=== PATIENT | male | born 1980 | race African-American/Black ===

== ENCOUNTER 2021-10-28 19:53 | Emergency (ER) | payer OTHER ==
[~2021-10-28] VITALS: Ht 175.3 cm; Wt 71.4 kg
[2021-10-28 21:38] VITALS: BP 129/72
== END 2021-10-28 21:41 | disposition home or self-care (01) ==
LOC: EMS 19:58
DX: F15.10 Other stimulant abuse, uncomplicated (principal); F20.9 Schizophrenia, unspecified; F41.9 Anxiety disorder, unspecified; F17.210 Nicotine dependence, cigarettes, uncomplicated; Z87.19 Personal history of other diseases of the digestive system; Z86.59 Personal history of other mental and behavioral disorders
CPT/HCPCS: 99281; Z7502

== ENCOUNTER 2022-02-02 03:29 | Inpatient (IN) | payer MEDICAID ==
[~2022-02-02] VITALS: Ht 175.3 cm; Wt 71.0 kg
[2022-02-02] MEDS ORDERED: ZOLPIDEM TARTRATE 10 MG TABLET PO PRN (04:15)
[2022-02-02] MEDS ORDERED: PNEUMOCOCCAL VACCINE POLYVALENT 0.5 ML VIAL [PPSV23] IM. ONE (05:15)
[2022-02-02 05:51] VITALS: BP 138/85
[2022-02-02] MEDS: LORazepam 2 MG TABLET PO PRN (15:51)
[2022-02-02] MEDS: HALOPERIDOL 5 MG TABLET PO PRN (15:51)
[2022-02-02 20:03] VITALS: BP 126/82
[2022-02-02] MEDS ORDERED: MAGNESIUM HYDROXIDE SUSPENSION 30 ML UDCUP PO PRN (22:30)
[2022-02-02] MEDS ORDERED: BENZOCAINE/MENTHOL LOZENGE PO PRN (22:30)
[2022-02-02] MEDS ORDERED: LOPERAMIDE HCL 2 MG CAPSULE PO PRN (22:30)
[2022-02-02] MEDS ORDERED: OMEPRAZOLE 20 MG CAPSULE PO PRN (22:30)
[2022-02-02] MEDS ORDERED: PETROLATUM,WHITE 28 GM JELLY TP PRN (22:30)
[2022-02-02] MEDS ORDERED: ALBUTEROL SULFATE HFA 90 MCG/PUFF 8 GM INHALER IH PRN (22:30)
[2022-02-02] MEDS ORDERED: IBUPROFEN 600 MG TABLET PO PRN (22:30)
[2022-02-02] MEDS ORDERED: ACETAMINOPHEN 325 MG TABLET PO PRN (22:30)
[2022-02-02] MEDS ORDERED: BACITRACIN 28 GM OINTMENT TP PRN (22:30)
[2022-02-02] MEDS ORDERED: CloNIDine HCL 0.1 MG TABLET PO PRN (22:30)
[2022-02-02] MEDS ORDERED: ONDANSETRON HCL 4 MG TABLET PO PRN (22:30)
[2022-02-02] MEDS ORDERED: DOCUSATE SODIUM 100 MG CAPSULE PO PRN (22:30)
[2022-02-02] MEDS ORDERED: MAG HYDROX/AL HYDROX/SIMETH ES 30 ML SUSPENSION UDCUP PO PRN (22:30)
[2022-02-02 23:15] VITALS: BP 113/66
[2022-02-03 06:31] LABS: BASOPHILS % (AUTO) 1.1 % (0.0-2.0); EOSINOPHILS % (AUTO) 5.7 % (1.0-6.0); HEMATOCRIT 29.7 % (41-53); HEMOGLOBIN 9.4 g/dL (13.5-17.5); LYMPHOCYTES # (AUTO) 1.3 K/uL (1.0-4.8); LYMPHOCYTES % (AUTO) 19.9 % (22.0-44.0); MEAN CORPUSCULAR HEMOGLOBIN 27.8 pg (26.0-34.0); MEAN CORPUSCULAR HGB CONC 31.7 G/dL (31.0-37.0); MEAN CORPUSCULAR VOLUME 88 fL (80-100); MONOCYTES # (AUTO) 0.8 K/uL (0.1-1.0); MONOCYTES % (AUTO) 12.3 % (2.0-9.0); NEUTROPHILS # (AUTO) 3.9 K/uL (1.8-7.7); PLATELET COUNT (AUTO) 738 K/uL (150-450); RED BLOOD CELL COUNT(AUTO) 3.39 MIL/uL (4.50-5.90); RED CELL DISTRIBUTION WIDTH 15.4 % (11.5-14.5)
[2022-02-03 06:59] LABS: ALANINE AMINOTRANSFERASE 32 U/L (12-78); ALBUMIN 2.6 g/dL (3.4-5.0); ALKALINE PHOSPHATASE 150 U/L (46-116); ANION GAP 5 mmol/L (8-16); ASPARTATE AMINOTRANSFERASE 44 U/L (15-37); CALCIUM, TOTAL 8.8 mg/dL (8.8-10.5); CARBON DIOXIDE 28 mmol/L (22-29); CHLORIDE 102 mmol/L (98-107); CHOL/HDL RATIO 3.5 (4.2-7.3); CHOLESTEROL 120 mg/dL (131-200); CREATININE 0.92 mg/dL (0.60-1.30); GLOMERULAR FILTR. RATE CALC > 60 mL/min (>60); GLUCOSE,RANDOM 110 mg/dL (70-110); HDL CHOLESTEROL 34 mg/dL (40-60); LDL CHOL (CALC.) 75 mg/dL (0-130); POTASSIUM 4.7 mmol/L (3.5-5.1); SODIUM SERUM 135 mmol/L (136-145); THYROID STIMULATING HORMONE 1.45 uIU/mL (0.36-3.74); TOTAL PROTEIN, SERUM 8.3 g/dL (6.4-8.2); TRIGLYCERIDES 56 mg/dL (15-150); UREA NITROGEN, BLOOD 16 mg/dL (7-18)
[2022-02-03 07:10] LABS: BILIRUBIN,TOTAL 0.1 mg/dL (0.1-1.0)
[2022-02-03 08:41] VITALS: BP 125/77
[2022-02-03] MEDS: TraMADol HCL 50 MG TABLET PO PRN (11:04)
[2022-02-03 11:05] VITALS: BP 129/82
[2022-02-03 11:45] LABS: APPEARANCE,URINE CLEAR (CLEAR); BILIRUBIN,URINE NEGATIVE (NEGATIVE); GLUCOSE, URINE (UA) NEGATIVE (NEGATIVE); KETONES,URINE NEGATIVE (NEGATIVE); LEUKOCYTE ESTERASE ,URINE NEGATIVE (NEGATIVE); NITRATE,URINE NEGATIVE (NEGATIVE); OCCULT BLOOD,URINE NEGATIVE (NEGATIVE); PH,URINE 7.5 (5.0-8.0); PROTEIN,URINE NEGATIVE (NEGATIVE); SPECIFIC GRAVITIY, URINE 1.022 (1.003-1.030); UROBILINOGEN,URINE <=1.0 mg/dL (<=1.0)
[2022-02-03 11:57] LABS: AMPHET/METH SCREEN,URINE NEGATIVE (NEGATIVE); BARBITURATE SCREEN, URINE NEGATIVE (NEGATIVE); BENZODIAZEPINES SCREEN,URINE NEGATIVE (NEGATIVE); CANNABINOID SCREEN,URINE POSITIVE (NEGATIVE); COCAINE SCREEN,URINE NEGATIVE (NEGATIVE); METHADONE SCREEN, URINE NEGATIVE (NEGATIVE); OPIATE SCREEN,URINE NEGATIVE (NEGATIVE); PHENCYCLIDINE SCREEN,URINE NEGATIVE (NEGATIVE)
[2022-02-03] MEDS: LORazepam 2 MG TABLET PO PRN (14:47)
[2022-02-03] MEDS: HALOPERIDOL 5 MG TABLET PO PRN (14:47)
[2022-02-03 16:03] VITALS: BP 103/75
[2022-02-03] MEDS ORDERED: MINERAL OIL/PETROLATUM 120 GM CREAM TP PRN (16:30)
[2022-02-03] MEDS: MAGNESIUM SULFATE 454 GM BAG TP SCH (17:46)
[2022-02-03 21:00] VITALS: BP 109/70
[2022-02-04 08:08] VITALS: BP 114/66
[2022-02-04] MEDS: ARIPiprazole 10 MG TABLET PO SCH (08:08)
[2022-02-04] MEDS: TraMADol HCL 50 MG TABLET PO PRN (08:08)
[2022-02-04] MEDS: MAGNESIUM SULFATE 454 GM BAG TP SCH ×3 (08:09→16:55)
[2022-02-04 08:33] VITALS: BP 114/66
[2022-02-04] MEDS: NICOTINE 21 MG/24 HOUR PATCH TD SCH (10:55)
[2022-02-04] MEDS: MUPIROCIN CALCIUM 2% 22 GM OINTMENT NASAL SCH ×2 (11:29→16:54)
[2022-02-04] MEDS ORDERED: CeFAZolin 2 GM/DEXTROSE 50 ML IV ONE (12:00)
[2022-02-04 16:01] VITALS: BP 106/56
[2022-02-04] MEDS: LORazepam 2 MG TABLET PO PRN (18:54)
[2022-02-05 08:02] VITALS: BP 106/62
[2022-02-05] MEDS: ASPIRIN 81 MG DR TABLET PO SCH (08:12)
[2022-02-05] MEDS: MUPIROCIN CALCIUM 2% 22 GM OINTMENT NASAL SCH ×2 (08:12→16:23)
[2022-02-05] MEDS: ARIPiprazole 10 MG TABLET PO SCH (08:12)
[2022-02-05] MEDS: MAGNESIUM SULFATE 454 GM BAG TP SCH ×2 (08:13→16:23)
[2022-02-05] MEDS: NICOTINE 21 MG/24 HOUR PATCH TD SCH ×2 (08:13→09:00)
[2022-02-05 16:01] VITALS: BP 107/73
[2022-02-06] MEDS: LORazepam 2 MG TABLET PO PRN (04:02)
[2022-02-06 08:17] VITALS: BP 109/60
[2022-02-06] MEDS: NICOTINE 21 MG/24 HOUR PATCH TD SCH (09:00)
[2022-02-06] MEDS: MAGNESIUM SULFATE 454 GM BAG TP SCH (09:00)
[2022-02-06] MEDS: ASPIRIN 81 MG DR TABLET PO SCH (09:07)
[2022-02-06] MEDS: ARIPiprazole 10 MG TABLET PO SCH (09:07)
[2022-02-06] MEDS: MUPIROCIN CALCIUM 2% 22 GM OINTMENT NASAL SCH (09:20)
[2022-02-07] MEDS ORDERED: CeFAZolin 2 GM/DEXTROSE 50 ML IV ONE (12:00)
== END 2022-02-06 13:15 | disposition short-term general hospital (02) | DRG 750 ==
LOC: B3A 04:23 → 3EC 22:41
PROVIDERS: ADMIT Psychiatry & Neurology Psychiatry; ATTEND Psychiatry & Neurology Psychiatry
DX: F25.9 Schizoaffective disorder, unspecified (principal); R45.851 Suicidal ideations; F32.A Depression, unspecified; F41.9 Anxiety disorder, unspecified; G47.00 Insomnia, unspecified; I10 Essential (primary) hypertension; J44.9 Chronic obstructive pulmonary disease, unspecified; K21.9 Gastro-esophageal reflux disease without esophagitis; F15.90 Other stimulant use, unspecified, uncomplicated; K59.00 Constipation, unspecified; Z59.00 Homelessness unspecified; Z72.0 Tobacco use; Z91.81 History of falling
CPT/HCPCS: 80053; 80061; 80307; 81003; 83036; 84439; 84443; 85025; 87081; J0690

== ENCOUNTER 2022-02-06 14:29 | Inpatient (IN) | payer OTHER ==
[~2022-02-06] VITALS: Ht 172.7 cm; Wt 70.4 kg
[2022-02-06 14:00] VITALS: BP 118/75
[2022-02-06 15:51] VITALS: BP 119/69
[2022-02-06] MEDS: HYDROCODONE/ACETAMINOPHEN 5-325 MG TABLET PO PRN (16:23)
[2022-02-06 16:36] LABS: COVID AG,FIA SOURCE NASAL SWAB
[2022-02-06 19:49] VITALS: BP 115/78
[2022-02-07 04:34] VITALS: BP 100/58
[2022-02-07] MEDS ORDERED: ALBUTEROL SULFATE 2.5 MG/0.5 ML NEB SOLUTION NEB PRN (06:15)
[2022-02-07] MEDS ORDERED: IPRATROPIUM BROMIDE 0.5 MG/2.5 ML NEB SOLUTION NEB PRN (06:15)
[2022-02-07] MEDS ORDERED: ACETAMINOPHEN 325 MG TABLET PO PRN (06:15)
[2022-02-07 07:23] VITALS: BP 113/74
[2022-02-07] MEDS ORDERED: RINGERS SOLUTION,LACTATED 0 ML IV ONE (08:03)
[2022-02-07 08:28] LABS: BASOPHILS % (AUTO) 1.1 % (0.0-2.0); HEMATOCRIT 33.1 % (41-53); HEMOGLOBIN 10.5 g/dL (13.5-17.5); LYMPHOCYTES # (AUTO) 1.3 K/uL (1.0-4.8); LYMPHOCYTES % (AUTO) 20.4 % (22.0-44.0); MEAN CORPUSCULAR HEMOGLOBIN 27.7 pg (26.0-34.0); MEAN CORPUSCULAR HGB CONC 31.6 G/dL (31.0-37.0); MEAN CORPUSCULAR VOLUME 88 fL (80-100); MONOCYTES # (AUTO) 0.6 K/uL (0.1-1.0); MONOCYTES % (AUTO) 9.9 % (2.0-9.0); NEUTROPHILS # (AUTO) 3.9 K/uL (1.8-7.7); NEUTROPHILS % (AUTO) 58.6 % (40.0-70.0); PLATELET COUNT (AUTO) 611 K/uL (150-450); RED BLOOD CELL COUNT(AUTO) 3.77 MIL/uL (4.50-5.90); RED CELL DISTRIBUTION WIDTH 15.5 % (11.5-14.5)
[2022-02-07 08:40] LABS: INR 1.1 (0.9-1.1); PROTHROMBIN TIME 11.9 SEC (9.4-11.6)
[2022-02-07 08:41] LABS: HEMOGLOBIN A1C 5.8 % (3.8-5.6)
[2022-02-07 08:43] LABS: ALANINE AMINOTRANSFERASE 31 U/L (12-78); ALBUMIN 3.1 g/dL (3.4-5.0); ALKALINE PHOSPHATASE 185 U/L (46-116); ANION GAP 4 mmol/L (8-16); ASPARTATE AMINOTRANSFERASE 27 U/L (15-37); BILIRUBIN,TOTAL 0.1 mg/dL (0.1-1.0); CALCIUM, TOTAL 9.3 mg/dL (8.8-10.5); CARBON DIOXIDE 30 mmol/L (22-29); CHLORIDE 101 mmol/L (98-107); CREATININE 0.94 mg/dL (0.60-1.30); GLUCOSE,RANDOM 88 mg/dL (70-110); PHOSPHORUS 4.2 mg/dL (2.5-4.9); POTASSIUM 4.5 mmol/L (3.5-5.1); SODIUM SERUM 135 mmol/L (136-145); TOTAL PROTEIN, SERUM 9.1 g/dL (6.4-8.2); UREA NITROGEN, BLOOD 13 mg/dL (7-18)
[2022-02-07 09:00] LABS: GLOMERULAR FILTR. RATE CALC > 60 mL/min (>60)
[2022-02-07] MEDS ORDERED: RINGERS SOLUTION,LACTATED 1,000 ML IV ONE (11:00)
[2022-02-07] MEDS: HYDROCODONE/ACETAMINOPHEN 5-325 MG TABLET PO PRN (11:13)
[2022-02-07 13:00] VITALS: BP 117/76
[2022-02-07] MEDS: MORPHINE SULFATE 2 MG/ML SYRINGE IVP PRN ×3 (13:03→23:26)
[2022-02-07 15:36] VITALS: BP 120/74
[2022-02-07 19:41] VITALS: BP 116/72
[2022-02-08 04:12] VITALS: BP 110/70
[2022-02-08] MEDS ORDERED: RINGERS SOLUTION,LACTATED 1,000 ML IV ONE ×2 (06:19→10:21)
[2022-02-08] MEDS ORDERED: BUPIVACAINE LIPOSOME/PF 1.3%-13.3MG/ML SUSPENSION 20 ML VIAL INJ ONE (06:45)
[2022-02-08] MEDS ORDERED: SODIUM CL IRRIG SOLN BAG 3,000 ML IRRIG ONE (06:47)
[2022-02-08] MEDS ORDERED: BUPIVACAINE HCL/PF 0.25% 30 ML VIAL ONE (06:47)
[2022-02-08] MEDS: RINGERS SOLUTION,LACTATED 1,000 ML IV SCH (06:52)
[2022-02-08] MEDS: VANCOMYCIN HCL 1 GM/VIAL ONE ×2 (08:10→08:11)
[2022-02-08] MEDS ORDERED: VANCOMYCIN HCL 1 GM/VIAL ONE (09:52)
[2022-02-08] MEDS ORDERED: SUGAMMADEX SODIUM 200 MG/2 ML VIAL IVP ONE (11:05)
[2022-02-08] MEDS ORDERED: ROCURONIUM BROMIDE 10 MG/ML 5 ML VIAL ONE (11:06)
[2022-02-08] MEDS ORDERED: HYDROmorphone 2 MG/ML VIAL ONE (11:53)
[2022-02-08] MEDS ORDERED: FentaNYL CITRATE PF 100 MCG/2 ML VIAL ONE (11:53)
[2022-02-08] MEDS ORDERED: ACETAMINOPHEN 1000 MG/ISO-OSM 100 ML IV ONE ×2 (11:53→12:15)
[2022-02-08] MEDS ORDERED: MEPERIDINE-PF 25 MG/ML VIAL IVP PRN (12:15)
[2022-02-08] MEDS: HYDROmorphone 2 MG/ML VIAL IVP PRN ×3 (12:23→12:43)
[2022-02-08] MEDS: FentaNYL CITRATE PF 100 MCG/2 ML VIAL IVP PRN ×2 (12:23→12:24)
[2022-02-08] MEDS: MORPHINE SULFATE 2 MG/ML SYRINGE IVP PRN (13:26)
[2022-02-08] MEDS ORDERED: SODIUM CHLORIDE 0.9% 250 ML IV ONE (16:18)
[2022-02-08] MEDS: CeFAZolin 2 GM/DEXTROSE 50 ML IV SCH (16:35)
[2022-02-08] MEDS: HYDROCODONE/ACETAMINOPHEN 5-325 MG TABLET PO PRN ×2 (16:36→20:45)
[2022-02-08 17:01] VITALS: BP 126/72
[2022-02-08 19:36] VITALS: BP_SYST 102; BP_SYST 131; BP_DIAS 62; BP_DIAS 74
[2022-02-08] MEDS: OXYGEN THERAPY IH SCH (20:45)
[2022-02-08] MEDS: ENOXAPARIN SODIUM 30 MG/0.3 ML PF SYRINGE SQ SCH (20:45)
[2022-02-09] MEDS: CeFAZolin 2 GM/DEXTROSE 50 ML IV SCH
[2022-02-09] MEDS: HYDROCODONE/ACETAMINOPHEN 5-325 MG TABLET PO PRN ×5 (00:58→22:32)
[2022-02-09] MEDS ORDERED: HYDROmorphone 2 MG/ML VIAL IVP ONE (05:28)
[2022-02-09] MEDS ORDERED: PROPOFOL 1% 20 ML VIAL IVP ONE (05:28)
[2022-02-09] MEDS ORDERED: MIDAZOLAM HCL 2 MG/2 ML VIAL IVP ONE (05:28)
[2022-02-09] MEDS ORDERED: ONDANSETRON HCL 4 MG/2 ML VIAL IVP ONE (05:28)
[2022-02-09] MEDS ORDERED: ROCURONIUM BROMIDE 10 MG/ML 5 ML VIAL IVP ONE (05:28)
[2022-02-09] MEDS ORDERED: LIDOCAINE/PF 2% 5 ML VIAL IM ONE (05:28)
[2022-02-09 05:38] VITALS: BP 122/74
[2022-02-09] MEDS: RINGERS SOLUTION,LACTATED 1,000 ML IV SCH (06:39)
[2022-02-09] MEDS: OXYGEN THERAPY IH SCH ×2 (08:00→20:00)
[2022-02-09] MEDS: ENOXAPARIN SODIUM 30 MG/0.3 ML PF SYRINGE SQ SCH ×2 (08:12→20:44)
[2022-02-09 08:58] VITALS: BP 127/69
[2022-02-09 16:33] VITALS: BP 129/70
[2022-02-09 20:07] VITALS: BP 138/68
[2022-02-09] MEDS: MELATONIN 3 MG TABLET PO PRN (23:10)
[2022-02-10 03:12] VITALS: BP 123/83
[2022-02-10] MEDS: HYDROCODONE/ACETAMINOPHEN 5-325 MG TABLET PO PRN ×5 (03:14→20:28)
[2022-02-10] MEDS: RINGERS SOLUTION,LACTATED 1,000 ML IV SCH (07:37)
[2022-02-10] MEDS: OXYGEN THERAPY IH SCH ×2 (08:00→20:00)
[2022-02-10 08:45] VITALS: BP 118/81
[2022-02-10] MEDS: ENOXAPARIN SODIUM 30 MG/0.3 ML PF SYRINGE SQ SCH ×2 (08:46→20:30)
[2022-02-10 16:09] VITALS: BP 111/65
[2022-02-10 20:00] VITALS: BP 123/67
[2022-02-10] MEDS: MELATONIN 3 MG TABLET PO PRN ×2 (20:30→20:35)
[2022-02-11] MEDS: HYDROCODONE/ACETAMINOPHEN 5-325 MG TABLET PO PRN (00:31)
== END 2022-02-11 03:59 | disposition left against medical advice (07) | DRG 315 ==
LOC: 6S 15:19
PROVIDERS: ADMIT Internal Medicine; ATTEND Internal Medicine
PROC: 0PSH04Z Reposition Right Radius with Internal Fixation Device, Open Approach (ICD-10-PCS; principal; 2022-02-07)
PROC: 0PSK04Z Reposition Right Ulna with Internal Fixation Device, Open Approach (ICD-10-PCS; 2022-02-07)
DX: S52.201A Unspecified fracture of shaft of right ulna, initial encounter for closed fracture (principal); F15.90 Other stimulant use, unspecified, uncomplicated; S52.301A Unspecified fracture of shaft of right radius, initial encounter for closed fracture; F20.9 Schizophrenia, unspecified; F41.9 Anxiety disorder, unspecified; G47.00 Insomnia, unspecified; I10 Essential (primary) hypertension; J44.9 Chronic obstructive pulmonary disease, unspecified; K21.9 Gastro-esophageal reflux disease without esophagitis; K59.00 Constipation, unspecified; Z53.29 Procedure and treatment not carried out because of patient's decision for other reasons; Z20.822 Contact with and (suspected) exposure to COVID-19; Y08.89XA Assault by other specified means, initial encounter; Y93.89 Activity, other specified; Y92.89 Other specified places as the place of occurrence of the external cause; Y99.8 Other external cause status
CPT/HCPCS: 80053; 83036; 83735; 84100; 85025; 85610; 87081; 97116; 97162; 97167; 97530; 97535; C9290; G0238; J0131; J0690; J1170; J1650; J2250; J2270; J2405; J2704; J3010; J3370; J3490; J7050; J7120; Q9967

== ENCOUNTER 2022-02-11 05:03 | Emergency (ER) | payer OTHER ==
[~2022-02-11] VITALS: Ht 172.7 cm; Wt 70.0 kg
[2022-02-11 05:05] VITALS: BP 125/62
[2022-02-11 07:44] LABS: BASOPHILS % (AUTO) 0.5 % (0.0-2.0); EOSINOPHILS % (AUTO) 1.3 % (1.0-6.0); HEMATOCRIT 23.5 % (41-53); HEMOGLOBIN 7.6 g/dL (13.5-17.5); LYMPHOCYTES # (AUTO) 1.4 K/uL (1.0-4.8); LYMPHOCYTES % (AUTO) 15.4 % (22.0-44.0); MEAN CORPUSCULAR HEMOGLOBIN 28.1 pg (26.0-34.0); MEAN CORPUSCULAR HGB CONC 32.2 G/dL (31.0-37.0); MEAN CORPUSCULAR VOLUME 87 fL (80-100); MONOCYTES # (AUTO) 0.8 K/uL (0.1-1.0); MONOCYTES % (AUTO) 8.9 % (2.0-9.0); NEUTROPHILS # (AUTO) 6.9 K/uL (1.8-7.7); NEUTROPHILS % (AUTO) 73.9 % (40.0-70.0); PLATELET COUNT (AUTO) 457 K/uL (150-450); RED BLOOD CELL COUNT(AUTO) 2.69 MIL/uL (4.50-5.90); RED CELL DISTRIBUTION WIDTH 15.9 % (11.5-14.5)
[2022-02-11 07:53] LABS: ANION GAP 3 mmol/L (8-16); CALCIUM, TOTAL 8.8 mg/dL (8.8-10.5); CARBON DIOXIDE 31 mmol/L (22-29); CHLORIDE 100 mmol/L (98-107); CREATININE 0.83 mg/dL (0.60-1.30); GLUCOSE,RANDOM 134 mg/dL (70-110); POTASSIUM 3.9 mmol/L (3.5-5.1); SODIUM SERUM 134 mmol/L (136-145); UREA NITROGEN, BLOOD 9 mg/dL (7-18)
[2022-02-11 07:56] LABS: GLOMERULAR FILTR. RATE CALC > 60 mL/min (>60)
[2022-02-11 07:58] LABS: ALANINE AMINOTRANSFERASE 25 U/L (12-78); ALBUMIN 2.6 g/dL (3.4-5.0); ALKALINE PHOSPHATASE 130 U/L (46-116); ASPARTATE AMINOTRANSFERASE 33 U/L (15-37); BILIRUBIN,TOTAL 0.1 mg/dL (0.1-1.0); TOTAL PROTEIN, SERUM 7.5 g/dL (6.4-8.2)
== END 2022-02-11 09:04 | disposition left against medical advice (07) ==
LOC: EMS 05:04
DX: M79.601 Pain in right arm (principal); Z53.21 Procedure and treatment not carried out due to patient leaving prior to being seen by health care provider
CPT/HCPCS: 80053; 85025; 36415; G0480

== ENCOUNTER 2023-08-26 19:25 | Inpatient (IN) | payer MEDICAID, OTHER ==
[~2023-08-26] VITALS: Ht 172.7 cm; Wt 78.0 kg
[2023-08-26] MEDS ORDERED: [UNRECOGNIZED DRUG - CODE] IM (19:39)
[2023-08-26 20:24] LABS: BASOPHILS % (AUTO) 0.5 % (0.0-2.0); EOSINOPHILS % (AUTO) 2.3 % (1.0-6.0); HEMOGLOBIN 11.6 g/dL (13.5-17.5); LYMPHOCYTES # (AUTO) 1.4 K/uL (1.0-4.8); LYMPHOCYTES % (AUTO) 15.5 % (22.0-44.0); MEAN CORPUSCULAR HEMOGLOBIN 27.7 pg (26.0-34.0); MEAN CORPUSCULAR HGB CONC 33.1 G/dL (31.0-37.0); MEAN CORPUSCULAR VOLUME 84 fL (80-100); MONOCYTES # (AUTO) 0.8 K/uL (0.1-1.0); MONOCYTES % (AUTO) 8.8 % (2.0-9.0); NEUTROPHILS # (AUTO) 6.4 K/uL (1.8-7.7); NEUTROPHILS % (AUTO) 72.9 % (40.0-70.0); PLATELET COUNT (AUTO) 466 K/uL (150-450); RED BLOOD CELL COUNT(AUTO) 4.18 MIL/uL (4.50-5.90); RED CELL DISTRIBUTION WIDTH 17.5 % (11.5-14.5); WHITE BLOOD COUNT (AUTO) 8.8 K/uL (4.5-11.0)
[2023-08-26 20:34] LABS: ANION GAP 9 mmol/L (8-16); CALCIUM, TOTAL 9.1 mg/dL (8.8-10.5); CARBON DIOXIDE 30 mmol/L (22-29); CHLORIDE 98 mmol/L (98-107); GLOMERULAR FILTR. RATE CALC > 60 mL/min (>60); GLUCOSE,RANDOM 100 mg/dL (70-110); POTASSIUM 4.6 mmol/L (3.5-5.1); SODIUM SERUM 137 mmol/L (136-145); UREA NITROGEN, BLOOD 15 mg/dL (7-18)
[2023-08-26 20:40] LABS: ALANINE AMINOTRANSFERASE 13 U/L (12-78); ALBUMIN 3.8 g/dL (3.4-5.0); ALKALINE PHOSPHATASE 117 U/L (46-116); ASPARTATE AMINOTRANSFERASE 33 U/L (15-37); BILIRUBIN,TOTAL 0.2 mg/dL (0.1-1.0); TOTAL PROTEIN, SERUM 8.4 g/dL (6.4-8.2)
[2023-08-26 20:50] LABS: ALCOHOL, BLOOD (SERUM) < 3 mg/dL (0-10)
[2023-08-26 21:24] LABS: PH,URINE DRUG SCREEN 6.5 (5.0-8.0)
[2023-08-26 21:30] LABS: ALCOHOL, URINE DRUG SCREEN NEGATIVE (NEGATIVE); AMPHET/METH SCREEN,URINE POSITIVE (NEGATIVE); BARBITURATE SCREEN, URINE NEGATIVE (NEGATIVE); BENZODIAZEPINES SCREEN,URINE NEGATIVE (NEGATIVE); CANNABINOID SCREEN,URINE POSITIVE (NEGATIVE); COCAINE SCREEN,URINE NEGATIVE (NEGATIVE); METHADONE SCREEN, URINE NEGATIVE (NEGATIVE); OPIATE SCREEN,URINE NEGATIVE (NEGATIVE); PHENCYCLIDINE SCREEN,URINE NEGATIVE (NEGATIVE)
[2023-08-26 23:23] LABS: COVID AG,FIA SOURCE NASAL SWAB
[2023-08-26 23:55] LABS: SARS-COV2 (COVID) ANTIGEN,FIA Negative (Negative)
[2023-08-27 00:36] LABS: APPEARANCE,URINE CLEAR (CLEAR); BILIRUBIN,URINE NEGATIVE (NEGATIVE); COLOR,URINE COLORLESS (YELLOW); GLUCOSE, URINE (UA) NEGATIVE (NEGATIVE); KETONES,URINE NEGATIVE (NEGATIVE); LEUKOCYTE ESTERASE ,URINE NEGATIVE (NEGATIVE); NITRATE,URINE NEGATIVE (NEGATIVE); OCCULT BLOOD,URINE NEGATIVE (NEGATIVE); PH,URINE 6.5 (5.0-8.0); PROTEIN,URINE NEGATIVE (NEGATIVE); SPECIFIC GRAVITIY, URINE 1.007 (1.003-1.030); UROBILINOGEN,URINE <=1.0 mg/dL (<=1.0)
[2023-08-27 03:03] VITALS: BP 124/83; PULSE 85; RESP 18; TEMP 97.9; O2SAT 100
[2023-08-27 08:49] VITALS: BP 94/60; PULSE 98; RESP 18; TEMP 98.1; O2SAT 97
[2023-08-27] MEDS: LORazepam 2 MG TABLET PO PRN (11:57)
[2023-08-27] MEDS: BusPIRone HCL 10 MG TABLET PO SCH (18:01)
[2023-08-27] MEDS: BuPROPion HCL XL 150 MG ER TABLET PO SCH (18:02)
[2023-08-27] MEDS ORDERED: PETROLATUM,WHITE 28 GM JELLY TP PRN (19:30)
[2023-08-27] MEDS ORDERED: ACETAMINOPHEN 325 MG TABLET PO PRN (19:30)
[2023-08-27] MEDS ORDERED: IBUPROFEN 400 MG TABLET PO PRN (19:30)
[2023-08-27] MEDS ORDERED: GuaiFENesin/D-METHORPHAN [SUGAR-FREE] 200-20MG/10 ML SYRUP UDCUP PO PRN (19:30)
[2023-08-27] MEDS ORDERED: CloNIDine HCL 0.1 MG TABLET PO PRN (19:30)
[2023-08-27] MEDS ORDERED: DOCUSATE SODIUM 100 MG CAPSULE PO PRN (19:30)
[2023-08-27] MEDS ORDERED: ALBUTEROL SULFATE HFA 90 MCG/PUFF 8 GM INHALER IH PRN (19:30)
[2023-08-27] MEDS ORDERED: ONDANSETRON HCL 4 MG TABLET PO PRN (19:30)
[2023-08-27] MEDS ORDERED: MAGNESIUM HYDROXIDE SUSPENSION 30 ML UDCUP PO PRN (19:30)
[2023-08-27] MEDS ORDERED: LOPERAMIDE HCL 2 MG CAPSULE PO PRN (19:30)
[2023-08-27] MEDS: RisperiDONE 2 MG TABLET PO SCH (20:50)
[2023-08-27 20:58] VITALS: BP 107/72; PULSE 98; RESP 18; TEMP 97.1; O2SAT 98
[2023-08-28 07:25] LABS: HEMOGLOBIN A1C 6.1 % (3.8-5.6)
[2023-08-28 07:43] LABS: CHOL/HDL RATIO 2.5 (4.2-7.3); THYROID STIMULATING HORMONE 2.84 uIU/mL (0.36-3.74)
[2023-08-28 09:40] VITALS: BP 159/72; PULSE 85; RESP 19; TEMP 97.6; O2SAT 97
[2023-08-28] MEDS: MAG HYDROX/ALUMINUM HYD/SIMETH ES 30 ML SUSPENSION UDCUP PO PRN (17:32)
[2023-08-28 22:44] VITALS: BP 130/82; PULSE 82; RESP 18; TEMP 97.9; O2SAT 98
[2023-08-29 08:30] VITALS: BP 110/68; PULSE 85; RESP 18; TEMP 98; O2SAT 97
[2023-08-29] MEDS: ZOLPIDEM TARTRATE 10 MG TABLET PO PRN (21:16)
[2023-08-29 22:53] VITALS: BP 114/73; PULSE 90; RESP 18; TEMP 98; O2SAT 98
[2023-08-30 09:12] VITALS: BP 113/72; PULSE 76; RESP 17; TEMP 97.5; O2SAT 99
[2023-08-30] MEDS: FERROUS SULFATE 325 MG EC TABLET PO SCH (16:33)
[2023-08-30 21:43] VITALS: BP 104/70; PULSE 71; RESP 18; TEMP 98; O2SAT 100
[2023-08-31 09:30] VITALS: BP 103/56; PULSE 88; RESP 18; TEMP 97.7; O2SAT 99
[2023-08-31 22:19] VITALS: BP 111/66; PULSE 78; RESP 18; TEMP 98; O2SAT 97
[2023-09-01 11:08] VITALS: BP 109/67; RESP 18; TEMP 97.5; O2SAT 98
[2023-09-01] MEDS: NICOTINE 14 MG/24 HOUR PATCH TD PRN (15:52)
[2023-09-01 20:34] VITALS: BP 109/64; PULSE 70; RESP 18; TEMP 97.5; O2SAT 100
[2023-09-01] MEDS: HALOPERIDOL 5 MG TABLET PO PRN (21:00)
[2023-09-02 09:21] VITALS: BP 103/67; PULSE 67; RESP 16; TEMP 98; O2SAT 99
[2023-09-02 20:58] VITALS: BP 112/76; RESP 18
[2023-09-03 09:08] VITALS: BP 117/79; PULSE 72; RESP 18; TEMP 98.1; O2SAT 98
[2023-09-03] MEDS ORDERED: BUSP10TA23 PO ×2 (12:05→20:05)
[2023-09-03] MEDS ORDERED: RISP-32 PO (12:05)
[2023-09-03] MEDS ORDERED: BUPR-50 PO (12:05)
[2023-09-03] MEDS ORDERED: RISP2TAB45 PO (20:05)
[2023-09-03] MEDS ORDERED: FERR325T27 PO (20:05)
[2023-09-03] MEDS ORDERED: BUPR-49 PO (20:05)
== END 2023-09-03 14:40 | disposition home or self-care (01) | DRG 750 ==
LOC: EMS 19:28 → 3EI 08-27 01:05
PROVIDERS: ADMIT Psychiatry & Neurology Psychiatry; ATTEND Psychiatry & Neurology Psychiatry
PROC: GZHZZZZ Group Psychotherapy (ICD-10-PCS; principal; 2023-08-27)
DX: F25.1 Schizoaffective disorder, depressive type (principal); R45.851 Suicidal ideations; Z91.148 Patient's other noncompliance with medication regimen for other reason; F12.10 Cannabis abuse, uncomplicated; F15.10 Other stimulant abuse, uncomplicated; F43.10 Post-traumatic stress disorder, unspecified; Z20.822 Contact with and (suspected) exposure to COVID-19; F41.9 Anxiety disorder, unspecified; K21.9 Gastro-esophageal reflux disease without esophagitis; D75.839 Thrombocytosis, unspecified; D64.9 Anemia, unspecified; F17.210 Nicotine dependence, cigarettes, uncomplicated; G47.00 Insomnia, unspecified; Z59.00 Homelessness unspecified; Z79.899 Other long term (current) drug therapy
CPT/HCPCS: 80053; 80061; 80307; 81003; 83036; 84443; 85025; 87081; 99285; G0480